=== PATIENT | female | born 1980 | race African-American/Black ===

== ENCOUNTER 2018-11-23 06:37 | Emergency (ER) | payer OTHER ==
[~2018-11-23] VITALS: Ht 157.5 cm; Wt 63.6 kg
[2018-11-23 07:21] LABS: BASO % 0.5 % (0.0-1.0); EOS # 0.3 10^3/uL (0.0-0.5); EOS % 4.3 % (0.0-3.0); HEMATOCRIT 39.2 % (36.0-47.0); HEMOGLOBIN 12.6 g/dl (12.0-15.5); LYMPH # 1.9 10^3/uL (1.5-5.0); LYMPH % 31.2 % (24.0-44.0); MEAN CORPUSCULAR HEMOGLOBIN 30.6 pg (27.0-33.0); MEAN CORPUSCULAR HGB CONC 32.1 g/dl (32.0-36.5); MEAN CORPUSCULAR VOLUME 95.1 fl (80.0-96.0); MONO # 0.4 10^3/uL (0.0-0.8); MONO % 7.1 % (0.0-5.0); NEUTROPHILS # 3.4 10^3/uL (1.5-8.5); NEUTROPHILS % 56.2 % (36.0-66.0); PLATELET COUNT, AUTOMATED 230 10^3/uL (150-450); RED BLOOD COUNT 4.12 10^6/uL (4.00-5.40); WHITE BLOOD COUNT 6.1 10^3/uL (4.0-10.0)
[2018-11-23 07:41] LABS: ALBUMIN 3.3 GM/DL (3.2-5.2); ALT/SGPT 18 U/L (12-78); BILIRUBIN,DIRECT < 0.1 MG/DL (0.0-0.2); BILIRUBIN,TOTAL 0.2 MG/DL (0.2-1.0); BLOOD UREA NITROGEN 11 MG/DL (7-18); CALCIUM LEVEL 8.2 MG/DL (8.5-10.1); CARBON DIOXIDE LEVEL 27 MEQ/L (21-32); CHLORIDE LEVEL 106 MEQ/L (98-107); CREATININE FOR GFR 0.97 MG/DL (0.55-1.30); GLOMERULAR FILTRATION RATE > 60.0 (>58); GLUCOSE, FASTING 97 MG/DL (70-100); LIPASE 117 U/L (73-393); POTASSIUM SERUM 4.2 MEQ/L (3.5-5.1); SODIUM LEVEL 139 MEQ/L (136-145); TOTAL PROTEIN 6.7 GM/DL (6.4-8.2)
[2018-11-23 08:06] LABS: HCG, SERUM QUALITATIVE NEGATIVE (NEGATIVE)
--- NOTE | 2018-11-23 09:21 | REP ---
PELVIC ULTRASOUND: Real-time sonographic evaluation of the pelvis performed utilizing transabdominal and endovaginal technique. Bladder measures 4.3 x 2.5 x 5.1 cm. Uterus measures 9.0 x 5.1 x 6.8 cm. Endometrial thickness is 8 mm. Right ovary measures 2.3 x 1.3 x 1.8 cm and left ovary 4.1 x 2.1 x 3.4 cm. Hyperechoic nodule in the left ovary 1.4 x 1.3 x 1.6 cm may represent a small dermoid or complex dominant follicle. There is no evidence of torsion bilaterally, RI right ovary 0.52 and left ovary 0.61. There is trace free fluid. IMPRESSION: Hyperechoic nodule left ovary 1.6 cm maximally may represent a small dermoid or complex dominant follicle. No torsion. Trace free fluid. Electronically Signed by Henrry Mora MD 11/23/2018 10:06 A
[2018-11-23 09:35] VITALS: BP 118/60
[2018-11-23] MEDS ORDERED: IBUP-1022 PO (09:51)
== END 2018-11-23 10:05 | disposition home or self-care (01) ==
LOC: M ED 06:37
DX: D27.1 Benign neoplasm of left ovary (principal)

== ENCOUNTER 2018-12-05 12:31 | Emergency (ER) | payer OTHER ==
[~2018-12-05] VITALS: Ht 157.5 cm; Wt 66.6 kg
[~2018-12-05 12:31] MED LIST: IBUP-1022 PO
[2018-12-05] MEDS ORDERED: VALT500T PO (12:36)
[2018-12-05] MEDS ORDERED: NS 1,000 ML IV ONE (13:45)
[2018-12-05] MEDS ORDERED: KETOROLAC 30 MG/ML VIAL (J1885) IV ONE (14:00)
--- NOTE | 2018-12-05 14:50 | REP ---
CT of the brain without IV contrast: There are no comparisons. There is no hemorrhage. There is no edema, mass effect or midline shift. The cortical stripe is unremarkable. Ventricles are normal size and midline. There is complete opacification of the right sphenoid sinus with air fluid level. I suspect there is mucosal thickening in the left sphenoid sinus. Impression: There is no hemorrhage, mass or shift. There is opacification of the right sphenoid sinus and mucosal thickening in the left sphenoid sinus compatible with sinusitis. Electronically Signed by Henrry Gregg MD 12/05/2018 02:41 P
[2018-12-05 15:35] VITALS: BP 120/69
[2018-12-05] MEDS ORDERED: KETO10TAB PO (15:43)
[2018-12-05] MEDS ORDERED: AUGM875T28 PO (15:43)
[2018-12-05 15:46] LABS: BASO % 0.4 % (0.0-1.0); EOS # 0.2 10^3/uL (0.0-0.5); HEMATOCRIT 39.3 % (36.0-47.0); HEMOGLOBIN 12.7 g/dl (12.0-15.5); LYMPH # 1.6 10^3/uL (1.5-5.0); LYMPH % 27.5 % (24.0-44.0); MEAN CORPUSCULAR HEMOGLOBIN 30.4 pg (27.0-33.0); MEAN CORPUSCULAR HGB CONC 32.3 g/dl (32.0-36.5); MONO # 0.5 10^3/uL (0.0-0.8); MONO % 8.3 % (0.0-5.0); NEUTROPHILS # 3.4 10^3/uL (1.5-8.5); NEUTROPHILS % 60.6 % (36.0-66.0); PLATELET COUNT, AUTOMATED 304 10^3/uL (150-450); RED BLOOD COUNT 4.18 10^6/uL (4.00-5.40); WHITE BLOOD COUNT 5.6 10^3/uL (4.0-10.0)
[2018-12-05 16:07] LABS: ALBUMIN 3.3 GM/DL (3.2-5.2); ALT/SGPT 16 U/L (12-78); BILIRUBIN,TOTAL 0.1 MG/DL (0.2-1.0); BLOOD UREA NITROGEN 16 MG/DL (7-18); C REACTIVE PROTEIN QUANTITATIV 1.04 MG/DL (0.00-0.30); CALCIUM LEVEL 8.7 MG/DL (8.5-10.1); CARBON DIOXIDE LEVEL 25 MEQ/L (21-32); CHLORIDE LEVEL 109 MEQ/L (98-107); CREATININE FOR GFR 1.12 MG/DL (0.55-1.30); GLOMERULAR FILTRATION RATE > 60.0 (>58); GLUCOSE, FASTING 91 MG/DL (70-100); POTASSIUM SERUM 4.5 MEQ/L (3.5-5.1); SODIUM LEVEL 140 MEQ/L (136-145); TOTAL PROTEIN 6.9 GM/DL (6.4-8.2)
[2018-12-05 16:40] LABS: ERYTHROCYTE SEDIMENTATION RATE 19 mm/hr (0-20)
== END 2018-12-05 16:24 | disposition home or self-care (01) ==
LOC: M ED 12:31
DX: J32.3 Chronic sphenoidal sinusitis (principal); G43.909 Migraine, unspecified, not intractable, without status migrainosus
CPT/HCPCS: 70450; 80053; 85025; 85652; 86140; 96361; 96374; 99284; J1885